=== PATIENT | male | born 1985 | race Caucasian/White ===

== ENCOUNTER 2019-03-02 22:01 | Emergency (ER) | payer OTHER ==
[~2019-03-02] VITALS: Ht 177.8 cm; Wt 63.6 kg
[2019-03-02 22:21] VITALS: BP 123/78
[2019-03-02] MEDS ORDERED: HYDROcodone/acetaminophen 5mg/325mg tablet PO ONE (22:40)
[2019-03-02] MEDS ORDERED: morphine 4 MG/ML inj SYRINge IM ONE (23:55)
[2019-03-03] MEDS ORDERED: HYDR-4353 PO (00:16)
== END 2019-03-03 00:38 | disposition home or self-care (01) ==
LOC: ER 22:02
DX: S52.022A Displaced fracture of olecranon process without intraarticular extension of left ulna, initial encounter for closed fracture (principal); Z88.0 Allergy status to penicillin; Z79.899 Other long term (current) drug therapy; W18.39XA Other fall on same level, initial encounter; Y93.02 Activity, running; Y92.828 Other wilderness area as the place of occurrence of the external cause; Y99.8 Other external cause status
CPT/HCPCS: 29105; 73080; 96372; 99283; J2270